=== PATIENT | male | born 2000 | race Caucasian/White ===

== ENCOUNTER 2018-08-06 06:36 | Day surgery (SDC) | payer BC, OTHER ==
[2018-08-02 17:00] VITALS: Ht 188 cm; Wt 154.5 kg
[~2018-08-06] VITALS: Ht 188 cm; Wt 154.5 kg
[2018-08-06] VITALS (16 sets, daily range): BP systolic 121–182; BP diastolic 58–95; PULSE 62–104; RESP 12–27
[2018-08-06] MEDS ORDERED: SOD CHLORIDE 0.9% 1,000 ML IV SCH (08:00)
[2018-08-06] MEDS ORDERED: CEFAZOLIN 2 GM/50 ML (PMX) 50 ML IVPB ONE (08:00)
--- NOTE | 2018-08-06 09:13 | PREAC ---
Date/Time of Note Date/Time of Note DATE: 08/06/18 TIME: 09:11 Anesthesia Eval and Record Evaluation Time Pre-Procedure Interview DATE: 08/06/18 TIME: 09:11 Age 18 Sex male NPO: 8 hrs Preoperative diagnosis pilonidal cyst Planned procedure excision pilonidal cyst Past Medical History Past Medical History: Includes (possible EDWARD per patient, social smoking and ETOH) GI: Obesity Surgery & Anesthesia Issues No known issue Meds Anticoagulation: No Beta El within 24 hr: No Reason Beta El not given: Pt. not on B-El No Active Prescriptions or Reported Meds Current Medications Sodium Chloride 1,000 ml @ 75 mls/hr [id number] IV Last administered on 08/06/18at 07:55; Admin Dose 75 MLS/HR; Start 08/06/18 at 08:00; Stop 08/06/18 at 21:19 Meds reviewed: Yes Allergies Coded Allergies: vancomycin (Verified Allergy, Mild, rash, 08/06/18) Allergies Reviewed: Yes Labs/Studies Labs Reviewed: Reviewed by anesthesiologist Result Diagram: 08/06/18 0800 08/06/18 0800 Laboratory Tests 08/06/18 08:00 test: N/A Pre-procedure Exam Last vitals Vital Signs Date Temp Pulse Resp B/P (MAP) Pulse Ox O2 O2 Flow FiO2 Time Delivery Rate 08/06/18 97.7 77 16 131/76 97 Room Air 07:51 (94) Airway: Adequate mouth opening (large tongue small mouth), Adequate thyromental dist Mallampati: Mallampati III Teeth: Normal Lung: Normal Heart: Normal ASA Physical Status ASA physical status: 2 Emergency: None Planned Anesthetic General/MAC: ETT Planned Pain Management Parenteral pain med, Local by surgeon Pre-operative Attestations Prior to commencing anesthesia and surgery, the patient was re-evaluated, there was verification of: *The patient's identity *The results of appropriate recent lab work and preoperative vital signs *The above evaluation not changing prior to induction *Anesthetic plan, risk benefits, alternative and complications discussed with patient/family; questions answered; patient/family understands, accepts and wishes to proceed. STEVE GARRETT CRNA Aug 06, 2018 09:13
[2018-08-06] MEDS ORDERED: ROCURONIUM 50 MG INJ ONE (10:33)
[2018-08-06] MEDS ORDERED: PROPOFOL 40 ML ONE (10:33)
[2018-08-06] MEDS ORDERED: LIDOCAINE 2% (SDV) 5 ML INJ ONE (10:33)
[2018-08-06] MEDS ORDERED: CEFAZOLIN 1 GM INJ ONE (10:34)
[2018-08-06] MEDS ORDERED: NEOSTIGMINE 3 MG/3 ML SYRINGE ONE ×2 (10:37→11:16)
[2018-08-06] MEDS ORDERED: ONDANSETRON 4 MG INJ ONE (10:37)
[2018-08-06] MEDS ORDERED: GLYCOPYRROLATE 0.4 MG INJ ONE ×2 (10:37→11:16)
[2018-08-06] MEDS ORDERED: DEXAMETHASONE 4 MG/ML 5 ML INJ ONE (10:37)
[2018-08-06] MEDS ORDERED: FAMOTIDINE 20 MG INJ ONE (10:38)
[2018-08-06] MEDS ORDERED: SUCCINYLCHOLINE CHLORIDE 100 MG/5 ML SYG IV ONE (10:41)
[2018-08-06] MEDS ORDERED: BUPIVACAINE 0.25%/EPI (SDV) 30 ML INJ ONE ×2 (10:48→10:49)
[2018-08-06] MEDS ORDERED: LIDOCAINE 1% (MPF) 30 ML INJ ONE (10:48)
--- NOTE | 2018-08-06 11:19 | OPR ---
Date/Time of Note Date/Time of Note DATE: 08/06/18 TIME: 11:16 Operative Report Procedure Date: Aug 06, 2018 Preoperative Diagnosis Pilonidal cysts, extensive Postoperative Diagnosis Same Operation/Procedure Performed Excision of multiple pilonidal cysts and sinus tract, extensive Placement of bladder urinary matrix xenograft Surgeon Crescencio Michaud MD FACS Construction Craft Laborer None Anesthesia Type: general Estimated Blood Loss: 0 - 10 ml's Transfusion none Specimen Pilonidal cysts Grafts/Implants none Complications none Pt Condition Post Procedure: stable Disposition: PACU Indications Patient had a pilonidal cyst infection and was referred to my clinic for evaluation. Upon examining him it was noted that he had about 4 areas were cysts were identified beneath the skin with a sinus tract and dimpling along the skin as well as evidence of hair follicles going down into [place] that were forming at the area of the dimples. In order to prevent recurrent infections she will undergo minimally invasive pilonidal surgery removing the multiple cysts. Procedure Description Patient was laid in a prone position with tape used to spread the intergluteal cleft exposing the area of the pilonidal cyst. Timeout was conducted. The intergluteal Cleft region was prepped and draped with Betadine. Four areas of induration as well as dimpling were noted. The punch biopsy instrument that was 5 mm in diameter was used to incise the skin at the area of the dimpling sinus tracts and then the punch biopsy instrument was deepened all the way down to the posterior sacral fascia. Once this was done the subcutaneous tissue including cysts and multiple hair follicles were removed from the punch biopsy instrument and the operative field with the use of a hemostat clamp. This was then repe ated 3 more times fully excising all areas of pilonidal cyst dimpling and sinuses. The area of excision was irrigated with normal saline and confirmed to be hemostatic. 2 g of bladder urinary matrix powder formulation was instilled into the area as well as a 1 6 layer sheet of it cut into 5 smaller pieces. The area was then covered with dry sterile dressing. The patient tolerated the procedure well. There were no complications and all instrument and sponge counts were correct at the end of the procedure. CRESCENCIO MICHAUD Aug 06, 2018 11:19
--- NOTE | 2018-08-06 11:27 | PAC ---
Date/Time of Note Date/Time of Note DATE: 08/06/18 TIME: 11:25 Post-Anesthesia Notes Post-Anesthesia Note Last documented vital signs Vital Signs Date Temp Pulse Resp B/P (MAP) Pulse Ox O2 O2 Flow FiO2 Time Delivery Rate 08/06/18 97.7 77 16 131/76 97 Room Air 07:51 (94) Activity: WNL Respiratory function: WNL Cardiovascular function: WNL Mental status: Baseline Pain reasonably controlled: Yes Hydration appropriate: Yes Nausea/Vomiting absent: Yes Comments 171/84 Sp02 100% HR 100 RR 14 T 98.1F STEVE GARRETT ON SITE SERVICES SPECIALIST Aug 06, 2018 11:27
[2018-08-06] MEDS ORDERED: FENTAnyl 50 MCG/ML VIAL IV PRN (11:30)
[2018-08-06] MEDS ORDERED: ONDANSETRON 4 MG INJ IV PRN (11:30)
[2018-08-06] MEDS ORDERED: MEPERIDINE 25 MG INJ IV PRN (11:30)
[2018-08-06] MEDS ORDERED: LABETALOL HCL 20MG INJ IV PRN (11:30)
[2018-08-06] MEDS ORDERED: KETOROLAC 30 MG INJ IV PRN (11:30)
[2018-08-06] MEDS ORDERED: hydrALAzine 20 MG INJ IV PRN (11:30)
[2018-08-06] MEDS ORDERED: HYDROmorphONE 1 MG/5 ML IV SYRINGE IV PRN ×2 (11:30)
[2018-08-06] MEDS ORDERED: LABETALOL HCL 20MG INJ ONE (11:40)
== END 2018-08-06 13:24 | disposition home or self-care (01) ==
LOC: SDS 06:36
PROVIDERS: ATTEND Surgery Surgical Critical Care
DX: L05.91 Pilonidal cyst without abscess (principal)
CPT/HCPCS: 11772; 80053; 85025; 85610; 85730; 88304; J0690; J1100; J1170; J1885; J2405; J2710; J3010; Q4118; Q4166; Z7512; Z7610

== ENCOUNTER 2018-09-09 05:46 | Day surgery (SDC) | payer OTHER ==
[2018-09-06 15:53] VITALS: BMI 92.0
--- NOTE | 2018-09-08 20:28 | PREAC ---
Date/Time of Note Date/Time of Note DATE: 09/08/18 TIME: 20:27 Anesthesia Eval and Record Evaluation Time Pre-Procedure Interview DATE: 09/08/18 TIME: 20:27 Age 18 Sex male NPO: 8 hrs Preoperative diagnosis recurrent pilonidal cyst Planned procedure re-excision pilonidal cyst Past Medical History Past Medical History: Includes Pulm: Sleep Apnea, Other (recent URI, started antibiotics 5 days ago, current symptoms include postnasal drip and ocassional cough, pt understands risks and wants to proceed with surgery) GI: Morbid obesity Surgery & Anesthesia Issues No known issue Meds Anticoagulation: No Beta El within 24 hr: No Reason Beta El not given: Pt. not on B-El No Active Prescriptions or Reported Meds Meds reviewed: Yes Allergies Coded Allergies: vancomycin (Verified Allergy, Mild, rash, 09/09/18) Allergies Reviewed: Yes Labs/Studies Labs Reviewed: Reviewed by anesthesiologist test: N/A Studies: CXR Pre-procedure Exam Airway: Adequate mouth opening, Adequate thyromental dist Mallampati: Mallampati II Teeth: Normal Lung: Normal Heart: Normal ASA Physical Status ASA physical status: 2 Emergency: None Planned Anesthetic General/MAC: ETT Planned Pain Management Parenteral pain med, Local by surgeon Pre-operative Attestations Prior to commencing anesthesia and surgery, the patient was re-evaluated, there was verification of: *The patient's identity *The results of appropriate recent lab work and preoperative vital signs *The above evaluation not changing prior to induction *Anesthetic plan, risk benefits, alternative and complications discussed with patient/family; questions answered; patient/family understands, accepts and wishes to proceed. LUIS ANTONIO IBARRA September 08, 2018 20:28
[2018-09-09] VITALS (14 sets, daily range): BP systolic 138–189; BP diastolic 64–90; PULSE 90–116; RESP 16–30; Ht 190.5 cm; Wt 152.0 kg
[~2018-09-09] VITALS: Ht 190.5 cm; Wt 152.0 kg
[2018-09-09] MEDS ORDERED: LIDOCAINE 1% (MPF) 30 ML INJ ONE (06:48)
[2018-09-09] MEDS ORDERED: BUPIVACAINE 0.25%/EPI (SDV) 30 ML INJ ONE (06:48)
[2018-09-09] MEDS ORDERED: FENTAnyl 50 MCG/ML VIAL ONE (07:21)
[2018-09-09] MEDS ORDERED: MIDAZOLAM 1 MG/ML 2 ML INJ ONE (07:21)
[2018-09-09] MEDS ORDERED: PROPOFOL 20 ML ONE (07:58)
[2018-09-09] MEDS ORDERED: ROCURONIUM 50 MG INJ ONE (07:58)
[2018-09-09] MEDS ORDERED: CEFAZOLIN 1 GM INJ ONE (07:58)
[2018-09-09] MEDS ORDERED: LIDOCAINE 2% (SDV) 5 ML INJ ONE (07:58)
[2018-09-09] MEDS ORDERED: SUCCINYLCHOLINE CHLORIDE 100 MG/5 ML SYG IV ONE (07:58)
[2018-09-09] MEDS ORDERED: CEFAZOLIN 2 GM/50 ML (PMX) 50 ML IVPB ONE (08:00)
[2018-09-09] MEDS ORDERED: SOD CHLORIDE 0.9% 1,000 ML IV SCH (08:00)
[2018-09-09] MEDS ORDERED: ONDANSETRON 4 MG INJ ONE (08:01)
[2018-09-09] MEDS ORDERED: METOCLOPRAMIDE 10 MG INJ ONE (08:01)
[2018-09-09] MEDS ORDERED: DEXAMETHASONE 4 MG/ML 5 ML INJ ONE (08:01)
[2018-09-09] MEDS ORDERED: FAMOTIDINE 20 MG INJ ONE (08:01)
[2018-09-09] MEDS ORDERED: PROVENTIL HFA 6.7GM INHALER ONE (08:06)
[2018-09-09] MEDS ORDERED: SUGAMMADEX SODIUM 200 MG/2 ML VIAL IV ONE (08:48)
[2018-09-09] MEDS ORDERED: GLYCOPYRROLATE 0.4 MG INJ ONE (08:53)
--- NOTE | 2018-09-09 09:27 | OPR ---
Date/Time of Note Date/Time of Note DATE: 09/09/18 TIME: 09:25 Operative Report Preoperative Diagnosis Recurrent pilonidal cyst disease Postoperative Diagnosis Same Operation/Procedure Performed Excision of pilonidal cyst, simple Surgeon see signature line Sausage Wrapper None Anesthesia Type: general Estimated Blood Loss: minimal Transfusion none Specimen Pilonidal cyst Grafts/Implants none Complications none Pt Condition Post Procedure: stable Disposition: PACU Indications This patient over a month ago had excision of his pilonidal cyst and sinus tracts. They have been slowly improving and healing however he called complaining of a recurrent cyst along the right side of his intergluteal cleft along the right buttock tissue. He is therefore undergoing reexcision of the cyst. Procedure Description A 4 mm punch biopsy instrument was used to excise the area of the pilonidal cyst along the right buttock region. The punch biopsy instrument was deepened all the way down to the gluteal fascia and thereafter the hemostat clamps were used to excise the cyst and some hair follicles within it. Afterwards the area was irrigated with normal saline and covered with 1 g of bladder urinary matrix powder. The area was covered with dry sterile dressing and the patient was awakened from anesthesia and disposition to recovery suite in stable condition. All instrument sponge needle counts were correct at the end of the procedure. CRESCENCIO MICHAUD September 09, 2018 09:27
--- NOTE | 2018-09-09 10:28 | PAC ---
Date/Time of Note Date/Time of Note DATE: 09/09/18 TIME: 10:28 Post-Anesthesia Notes Post-Anesthesia Note Last documented vital signs Vital Signs Date Temp Pulse Resp B/P (MAP) Pulse Ox O2 O2 Flow FiO2 Time Delivery Rate 09/09/18 116 27 155/90 97 Room Air 10:23 (111) 09/09/18 98.5 09:28 Activity: WNL Respiratory function: WNL Cardiovascular function: WNL Mental status: Baseline Pain reasonably controlled: Yes Hydration appropriate: Yes Nausea/Vomiting absent: Yes LUIS ANTONIO IBARRA September 09, 2018 10:28
== END 2018-09-09 11:27 | disposition home or self-care (01) ==
LOC: SDS 05:46
PROVIDERS: ATTEND Surgery Surgical Critical Care
DX: L05.91 Pilonidal cyst without abscess (principal)
CPT/HCPCS: 11770; 71045; 80053; 85025; 85610; 85730; 88304; J0690; J1100; J2250; J2405; J2765; J3010; Q4118; Z7512; Z7610